=== PATIENT | male | born 1975 | race Hispanic/Latino ===

== ENCOUNTER 2025-05-13 06:22 | Emergency (ER) | payer MEDICARE ==
[~2025-05-13] VITALS: Ht 172.7 cm; Wt 95.3 kg
[2025-05-13 07:00] LABS: APPEARANCE,URINE CLEAR (CLEAR); GLUCOSE, URINE (UA) NEGATIVE (NEGATIVE); LEUKOCYTE ESTERASE ,URINE NEGATIVE Leu/uL (NEGATIVE); NITRATE,URINE NEGATIVE (NEGATIVE); OCCULT BLOOD,URINE NEGATIVE (NEGATIVE)
[2025-05-13 07:02] LABS: ADD UA MICROSCOPIC YES
[2025-05-13 07:03] LABS: IMMATURE GRANULOCYTE ABSOLUTE 0.04 K/uL (0-1); NUCLEATED RED BLOOD CELLS 0.0 % (0.0-0.19); PLATELET COUNT (AUTO) 278 K/uL (130-400); RED BLOOD CELL COUNT(AUTO) 5.18 MIL/uL (4.50-6.20); RED CELL DISTRIBUTION WIDTH 13.2 % (11.0-15.5); WHITE BLOOD COUNT (AUTO) 11.7 K/uL (4.8-10.8)
[2025-05-13 07:12] LABS: RAPID GROUP A STREP negative (NEGATIVE)
[2025-05-13 07:19] LABS: CREATINE KINASE, TOTAL 201.0 U/L (21-232); CREATININE 1.1 mg/dL (0.5-1.3); GLOMERULAR FILTR. RATE CALC 82.0 mL/min (>90); GLUCOSE,RANDOM 92.0 mg/dL (70-105); SODIUM SERUM 139.0 mmol/L (136-145); UREA NITROGEN, BLOOD 14.0 mg/dL (7-18)
[2025-05-13 07:22] LABS: COVID19 (SARS ANTIGEN RAPID) PRESUMPTIVE NEGATIVE (NEGATIVE); INFLUENZA TYPE A Negative For Type A (NEGATIVE); INFLUENZA TYPE B Negative For Type B (NEGATIVE)
[2025-05-13] MEDS: 0.9%NACL 1000ML 2,859 ML IV ONE (07:26)
[2025-05-13 07:27] VITALS: TEMP 100.2
--- NOTE | 2025-05-13 07:27 | ERN ---
General Chief Complaint: Multiple Complaints Stated Complaint: BILATERAL LEG PAIN, SHERIFF Time Seen by MD: 07:02 Source: patient History of Present Illness Initial Comments Patient is a 49-year-old gentleman coming in due to lower extremity pain. Per patient he has been having lower extremity discomfort which began this morning. He states that he was fine yesterday and after the injection he started feeling like this. No fever or chills. Allergies: Coded Allergies: Penicillins (Unverified Allergy, Unknown, 05/13/25) Past Medical History Past Medical History: Bipolar, Other Medical History Other: SLEEP APNEA W/ C PAP Past Surgical History: Other Surgical History Other: RT SHOULDER ROS Dictation CONSTITUTIONAL: No chills, no fever, no weakness, no diaphoresis, no malaise. HEAD/FACE: No signs of trauma. EENT: No eye pain, no blurred vision, no tearing, no double vision, no ear pain, no ear discharge, no nose pain, no nasal congestion, no throat pain, no throat swelling, no mouth pain. RESPIRATORY: No cough, no orthopnea, no SOB, no stridor, no wheezing. CARDIOVASCULAR: No chest pain, no edema, no palpitations, no syncope. GASTROINTESTINAL/ABDOMINAL: No abdominal pain, no constipation, no diarrhea, no nausea, no vomiting. GENITOURINARY: No abnormal discharge, no dysuria, no frequent urination, no hematuria. No complaints of pain in the genitals. MUSCULOSKELETAL: No back pain, no gout, no joint pain, no joint swelling, no muscle pain, no muscle stiffness, no neck pain. INTEGUMENTARY: No change in color, no change in hair/nails, no dryness, no lesion, no lumps, no rash. NEUROLOGICAL/PSYCH: No anxiety, not depressed, no emotional problem, no headache, no numbness, no pre-existing deficit, no history of seizures, no tremors, no weakness. HEMATOLOGIC/LYMPHATIC: Not anemic, no history of blood clots, no apparent bleeding, no bruising, glands not swollen. All Systems Negative, Except as Noted. Physical Exam Physical Exam Dictation VITAL SIGNS: Reviewed. GENERAL APPEARANCE: Alert, oriented x3, no acute distress, obese. HEAD AND FACE: Non-traumatic. EYES: PERRL, pink conjunctivas, eyelid no trauma, anterior chamber clear. EARS: Pinnas intact and no signs of trauma or erythema. Ear canals clear and no discharge. TMs no erythema. NOSE: No discharge, no bleeding. OROPHARYNX: Mouth normal, teeth no caries, tongue pink. Pharynx clear, no erythema. Tonsils no exudates, no abscesses noted. Mucous membrane moist. NECK: Supple, non-tender, no thyromegaly, no masses, no JVD, no bruits. BREAST: Deferred. CHEST: No tenderness, no crepitus, no paradoxical movement, no retractions. LUNGS: Clear, well-ventilated, symmetric, no rales, no wheezing, no rhonchi, no stridor, good breath sounds bilaterally. HEART: Regular rate, regular rhythm, no murmur, no gallops. VASCULAR: No peripheral edema. ABDOMEN: Soft, positive bowel sounds, nondistended, no guarding, nontender, no rebound, no masses no hepatomegaly, no splenomegaly, no Eng's sign, no hernias. RECTAL: Deferred. GENITAL: Deferred. NEUROLOGICAL: Normal speech, gross motor function intact, gross sensory func tion intact. MUSCULOSKELETAL: Neck nontender, full range of motion, back nontender, full range of motion. EXTREMITIES: Nontender, full range of motion. SKIN: Color pink, dry, no turgor, no rash, no lacerations, no abrasions, no contusions. LYMPHATICS: Deferred. Results Laboratory and Microbiology Lab and Micro Result Laboratory Tests Test 05/13/25 06:42 05/13/25 06:44 05/13/25 06:55 Influenza Type A Antigen Negative For Type A Influenza Type B Antigen Negative For Type B SARS-CoV-2 Antigen (Rapid) PRESUMPTIVE NEGATIVE Group A Streptococcus Rapid negative (NEGATIVE) Urine Color LIGHT-YELLOW (YELLOW) Urine Appearance CLEAR (CLEAR) Urine pH 6.0 (5.0-8.0) Urine Specific [place] 1.022 (1.001-1.031) Urine Protein 20 mg/dL (NEGATIVE) H Urine Glucose (UA) NEGATIVE mg/dL (NEGATIVE) Urine Ketones 10 mg/dL (NEGATIVE) H Urine Occult Blood NEGATIVE (NEGATIVE) Urine Nitrate NEGATIVE (NEGATIVE) Urine Bilirubin NEGATIVE mg/dL (NEGATIVE) Urine Urobilinogen 0.2 mg/dL (0.2-1.0) Urine Leukocyte Esterase NEGATIVE [place]/uL Urine RBC 2-5 /HPF (0-1) H Urine WBC 0-1 /HPF (0-1) Urine Bacteria None /HPF (None Seen) White Blood Count 11.7 K/uL (4.8-10.8) H Red Blood Count 5.18 MIL/uL (4.50-6.20) Hemoglobin 15.7 g/dL (14.0-18.0) Hematocrit 47.0 % (42-54) Mean Corpuscular Volume 90.7 fL (79-99) Mean Corpuscular Hemoglobin 30.3 pg (27.0-33.0) Mean Corpuscular Hemoglobin Concent 33.4 g/dL (32.0-36.0) Red Cell Distribution Width 13.2 % (11.0-15.5) Platelet Count 278 K/uL (130-400) Mean Platelet Volume 9.6 fL (7.5-10.5) Immature Granulocyte % (Auto) 0.3 % (0-1) Neutrophils (%) (Auto) 89.5 % (40.0-77.0) H Lymphocytes (%) (Auto) 4.9 % (21.0-51.0) L Monocytes (%) (Auto) 4.7 % (3.0-13.0) Eosinophils (%) (Auto) 0.1 % (0.0-8.0) Basophils (%) (Auto) 0.5 % (0.0-5.0) Neutrophils # (Auto) 10.5 K/uL (1.8-7.7) H Lymphocytes # (Auto) 0.6 K/uL (1.0-4.8) L Monocytes # (Auto) 0.6 K/uL (0.1-1.0) Eosinophils # (Auto) 0.01 K/uL (0.00-0.70) Basophils # (Auto) 0.06 K/uL (0.00-0.20) Absolute Immature Granulocyte (auto 0.04 K/uL (0-1) Nucleated Red Blood Cells 0.0 % (0.0-0.19) White Cell Morphology Comment See comments Sodium Level 139 mmol/L (136-145) Potassium Level 4.4 mmol/L (3.5-5.1) Chloride Level 103 mmol/L (101-111) Carbon Dioxide Level 30 mmol/L (21-32) Blood Urea Nitrogen 14 mg/dL (7-18) Creatinine 1.1 mg/dL (0.5-1.3) Glomerular Filtration Rate Calc 82 mL/min (>90) Random Glucose 92 mg/dL (70-105) Lactic Acid Level 0.9 mmol/L (0.8-2.5) Total Calcium 9.3 mg/dL (8.5-10.1) Total Creatine Kinase 201 U/L (21-232) Troponin I High Sensitivity 6 ng/L (4-75) Labs Reviewed?: Yes MDM MDM: Differential diagnosis: Vaccine reaction, muscle aches, dehydration, rhabdomyolysis, Rationale: Tests considered and ordered secondary to shared decision making include: Previous outside records reviewed: Old ER visits. Risk of complication and/or morbidity or mortality of patient management: None Medications-Per medication reconciliation Need for hospitalization: Patient does not meet criteria for hospitalization. Patient is a 49-year-old male coming in complaining of lower extremity pain. Patient attributes the pain to recent vaccination with the RSV vaccine. Throughout ER visit patient has been stable patient received anti-inflammatories antispasmodics states he feels much better. Patient will be discharged in stable condition with a diagnosis of vaccine reaction. ED Course Orders Procedure Category Date Status Time Cbc With Differential LAB 05/13/25 Complete 06:35 Basic Metabolic Panel LAB 05/13/25 Complete 06:35 Urinalysis Profile LAB 05/13/25 Complete 06:35 Chest 1vw RAD 05/13/25 Resulted 06:35 Blood Cult TORI 05/13/25 In Process 06:35 0.9%Nacl 1000ml (Ns PHA 05/13/25 In Process 1000ml) 07:00 Creatine Kinase, Total LAB 05/13/25 Complete 06:35 Troponin I High LAB 05/13/25 Complete Sensitivity 06:35 Lactic Acid LAB 05/13/25 Complete 06:35 12 Lead Ekg Tracing- EKG 05/13/25 Logged Technical 06:38 Acetaminophen 500mg PHA 05/13/25 Complete Tab (Tylenol 500mg T 07:00 Influenza Type A & B, LAB 05/13/25 Complete Rapid 06:38 Rapid (Group A Strep) LAB 05/13/25 Complete 06:38 Covid19 (Sars Antigen LAB 05/13/25 Complete Rapid) 06:38 Orphenadrine Citrate PHA 7/13/25 Complete (Norflex) 07:30 Ketorolac PHA 05/13/25 Complete Tromethamine 30mg/Ml 08:00 Current Medications Medications (Trade) Dose Ordered Sig/Keely Route PRN Reason Start Time Stop Time Status Last Admin Dose Admin Acetaminophen (TYLenol 500MG TAB) 1,000 mg ONCE ONCE PO 05/13/25 07:00 05/13/25 07:01 DC 05/13/25 07:27 Ketorolac Tromethamine (toRADol) 30 mg ONCE ONCE IVP 05/13/25 08:00 05/13/25 08:01 DC Orphenadrine Citrate (Norflex) 60 mg ONCE ONCE IM 05/13/25 07:30 05/13/25 07:31 DC 05/13/25 07:28 Sodium Chloride 2,859 ml @ 953 mls/hr ONCE ONCE IV 05/13/25 07:00 05/13/25 09:59 05/13/25 07:26 Vital Signs Date Time Temp Pulse Resp B/P (MAP) Pulse Ox O2 Delivery O2 Flow Rate FiO2 05/13/25 07:27 100.2 05/13/25 06:37 100.2 128 18 126/88 97 Room Air* 0 21 05/13/25 06:24 100.0 140 20 148/88 96 Room Air DX & DISP Disposition: Discharge Departure Impression: Primary Impression: Vaccine reaction Additional Impression: Muscle ache Condition: Stable Scripts Naproxen (Naproxen) 500 Mg Tablet 1 TAB PO BID for pain for 14 Days, #60 TAB 0 Refills Prov: SHANT CHILEL MD 05/13/25 Methocarbamol (Robaxin) 750 Mg Tab 1 TAB PO BID for 7 Days, #14 TAB 0 Refills Prov: SHANT CHILEL MD 05/13/25 Additional Instructions: FOLLOW-UP WITH PRIMARY CARE PROVIDER IN 1 TO 2 DAYS. TAKE MEDICATIONS DIRECTED HERE IN THE EMERGENCY ROOM. OKAY TO CONTINUE HOME MEDICATIONS UNLESS OTHERWISE DISCUSSED DURING YOUR VISIT IN THE EMERGENCY ROOM TODAY. RETURN TO YOUR NEAREST EMERGENCY ROOM IF SYMPTOMS WORSEN OR IF THERE IS NO IMPROVEMENT. CALL 911 IF YOU NEED IMMEDIATE ASSISTANCE. TAKE TYLENOL ALPE-MGI-IYKVIMY NEEDED AND IF NO CONTRAINDICATIONS ARE PRESENT. INCREASE ORAL HYDRATION. A WOUND CULTURE OR URINE CULTURE WAS ORDERED HERE IN THE EMERGENCY ROOM DEPARTMENT PLEASE FOLLOW-UP WITH PRIMARY CARE PROVIDER AND ADVISE THEM TO GET REPORTS FROM OUR FACILITY. IF YOU HAD ANY ALENA WRAP/SPLINTS THAT WERE APPLIED HERE, PLEASE DO NOT REMOVE THEM UNTIL YOU SEE YOUR PRIMARY CARE OR SPECIALTY. Referrals: Referrals: SELF,REFERRAL (PCP) FATOUMATA ALFORD MD Time of Disposition: 08:13 SHANT CHILEL MD May 13, 2025 07:27
[2025-05-13] MEDS: ORPHENADRINE 60MG/2ML IM ONE (07:28)
--- NOTE | 2025-05-13 07:48 | HMCIMG ---
EXAM: Chest radiograph 1 view HISTORY: Fever COMPARISON: None FINDINGS: No pulmonary consolidations. No pleural effusion or pneumothorax. Normal cardiomediastinal silhouette and pulmonary vasculature. Mild degenerative changes. IMPRESSION: No acute cardiopulmonary disease. /[place]
[2025-05-13] MEDS ORDERED: NAPR-1194 PO (08:14)
[2025-05-13] MEDS ORDERED: METH-662 PO (08:14)
[2025-05-13 09:55] VITALS: BP 112/75; PULSE 99; RESP 16; TEMP 97.8; O2SAT 97
--- NOTE | 2025-05-13 14:47 | EKG ---
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
== END 2025-05-13 09:57 | disposition home or self-care (01) ==
LOC: EDH 06:22
DX: M79.605 Pain in left leg (principal); M79.604 Pain in right leg; T88.1XXA Other complications following immunization, not elsewhere classified, initial encounter; Z88.0 Allergy status to penicillin; Y69 Unspecified misadventure during surgical and medical care; Y82.9 Unspecified medical devices associated with adverse incidents; Y92.9 Unspecified place or not applicable
CPT/HCPCS: 99285; 96374; 71045; 96361; 87426; 82550; 84484; 80048; 85025; 87040 ×2; 87880; 87804 ×2; 83605; 81001; 36415; 93005; 96372; J1885; J7030; J2360